=== PATIENT | female | born 2000 | race Hispanic/Latino ===

== ENCOUNTER 2021-01-14 12:54 | Emergency (ER) | payer SELFPAY ==
[~2021-01-14] VITALS: Ht 162.6 cm; Wt 55.4 kg
[2021-01-14 14:06] LABS: HEMATOCRIT 35.8 % (37.0-47.0); HEMOGLOBIN 11.9 g/dl (12.0-16.0); IMMATURE GRANULOCYTES 1.5 % (0.0-5.0); MEAN CELL VOLUME 89.7 fL CALC (80.0-100.0); MEAN CORPUSCULAR HGB 29.8 pG CALC (26.0-32.0); MEAN CORPUSCULAR HGB CONC 33.2 g/dL CAL (32.0-36.0); NEUT# 7.38 thou/uL (2.00-7.15); RED BLOOD COUNT 3.99 mill/uL (4.20-5.60); RED CELL DISTRI WIDTH 12.6 % (11.5-15.5)
[2021-01-14 14:09] LABS: ALBUMIN 3.6 g/dL (3.2-5.0); ALKALINE PHOSPHATASE 42 u/l (38-126); ANION GAP 9 (6-22 (CALC)); BUN 6 mg/dL (7-17); BUN/CREATININE RATIO 12 (12-20 (CALC)); CARBON DIOXIDE 24 mmol/l (22-30); CHLORIDE 101 mmol/l (95-108); CREATININE 0.5 mg/dL (0.5-1.0); GFR > 60 ML/MIN (>=60 (CALC)); GFR FOR AFR.AMER. > 60 ML/MIN (>=60 (CALC)); POTASSIUM 3.4 mmol/l (3.5-5.1); SGOT/AST 19 u/l (14-36); SODIUM 131 mmol/l (137-146); TOTAL PROTEIN 6.8 g/dL (6.3-8.2)
[2021-01-14] MEDS ORDERED: PRENATA3 PO (14:14)
[2021-01-14] MEDS ORDERED: DICLEGIS1 TAB PO (14:16)
[2021-01-14 14:33] LABS: URINE BILIRUBIN - DIPSTICK NEGATIVE (NEGATIVE); URINE BLOOD DIPSTICK NEGATIVE (NEGATIVE); URINE COLOR YELLOW; URINE GLUCOSE - DIPSTICK NEGATIVE (NEGATIVE); URINE KETONE NEGATIVE (NEGATIVE); URINE LEUK ESTERASE NEGATIVE (NEGATIVE); URINE PROTEIN - DIPSTICK TRACE mg/dL (NEG-TRACE); URINE UROBILINOGEN - DIPSTICK 0.2 E.U./dL (0.2)
[2021-01-14 14:34] LABS: URINE NITRITE - DIPSTICK POSITIVE (Negative)
[2021-01-14 14:40] LABS: URINE BACTERIA FEW hpf; URINE SQUAMOUS EPITHELIAL CELL MODERATE EPI/hpf (0-FEW)
[2021-01-14] MEDS ORDERED: MACROBID100 M1 PO (16:31)
[2021-01-14 16:49] VITALS: BP 97/62
== END 2021-01-14 16:57 | disposition home or self-care (01) | DRG 832 ==
LOC: ED 12:54
PROVIDERS: Family Medicine
DX: O23.42 Unspecified infection of urinary tract in pregnancy, second trimester (principal); E87.1 Hypo-osmolality and hyponatremia; O99.282 Endocrine, nutritional and metabolic diseases complicating pregnancy, second trimester; Z3A.15 15 weeks gestation of pregnancy

== ENCOUNTER 2023-10-18 22:13 | Observation (INO) | payer SELFPAY ==
[~2023-10-18] VITALS: Ht 162.6 cm; Wt 56.6 kg
[~2023-10-18 22:13] MED LIST: DICLEGIS1 TAB PO; MACROBID100 M1 PO; PRENATA3 PO
[2023-10-18 22:32] VITALS: BP 95/64
[2023-10-18] MEDS ORDERED: ONDANSETRON HCl 4 MG/2 ML SDV IV STA (22:36)
[2023-10-18] MEDS ORDERED: SODIUM CHLORIDE 0.9% 1,000 ML IV STA (22:36)
[2023-10-18 23:13] LABS: BASO% 0.2 % (0-3); IMMATURE GRANULOCYTES 0.1 % (0.0-5.0); LYMPH% 13.4 % (15-41); MEAN CORPUSCULAR HGB 29.2 pG CALC (26.0-32.0); MEAN CORPUSCULAR HGB CONC 32.5 g/dL CAL (32.0-36.0); MONO% 4.3 % (2-13); NEUT# 10.95 thou/uL (2.00-7.15); RED BLOOD COUNT 4.31 mill/uL (4.20-5.60); RED CELL DISTRI WIDTH 11.9 % (11.5-15.5)
[2023-10-18 23:21] LABS: BUN 10 mg/dL (7-17); BUN/CREATININE RATIO 22 (12-20 (CALC)); CHLORIDE 107 mmol/l (95-108); CREATININE 0.5 mg/dL (0.5-1.0); GFR FOR AFR.AMER. > 60 ML/MIN (>=60 (CALC)); GFR OTHER RACES > 60 ML/MIN (>=60 (CALC)); HEMATOCRIT 38.8 % (37.0-47.0); HEMOGLOBIN 12.6 g/dl (12.0-16.0); LIPASE 88 u/l (23-300); POTASSIUM 3.2 mmol/l (3.5-5.1); SGOT/AST 31 u/l (14-36); SODIUM 136 mmol/l (137-146); TOTAL PROTEIN 7.2 g/dL (6.3-8.2)
[2023-10-18 23:23] LABS: ALBUMIN 4.5 g/dL (3.2-5.0); ALKALINE PHOSPHATASE 74 u/l (38-126); ANION GAP 14 (6-22 (CALC)); BILIRUBIN, TOTAL 0.6 mg/dL (0.02-1.3); CARBON DIOXIDE 18 mmol/l (22-30)
[2023-10-18 23:30] VITALS: BP 101/65
[2023-10-18] MEDS ORDERED: MORPHINE SULFATE 4 MG/ML VIAL IV ONE (23:30)
[2023-10-19] VITALS (15 sets, daily range): BP systolic 97–119; BP diastolic 47–79
[2023-10-19 00:58] LABS: URINE BILIRUBIN - DIPSTICK Negative (NEGATIVE); URINE BLOOD DIPSTICK Moderate (NEGATIVE); URINE GLUCOSE - DIPSTICK Negative (NEGATIVE); URINE KETONE 40 mg/dL (NEGATIVE); URINE LEUK ESTERASE Negative (NEGATIVE); URINE PH 5.5 (4.5-8.0); URINE PROTEIN - DIPSTICK Negative (NEG-TRACE); URINE UROBILINOGEN - DIPSTICK 0.2 E.U./dL (0.2)
[2023-10-19 01:02] LABS: URINE COLOR Yellow; URINE NITRITE - DIPSTICK Positive (Negative)
[2023-10-19 01:08] LABS: URINE BACTERIA MODERATE hpf; URINE MUCUS FEW hpf (NONE-FEW); URINE SQUAMOUS EPITHELIAL CELL FEW EPI/hpf (0-FEW)
[2023-10-19] MEDS ORDERED: KETOROLAC TROMETHAMINE 30 MG/ML SDV IV ONE (01:10)
[2023-10-19] MEDS ORDERED: PIPERACILLIN Sodium-Tazobactam 3.375 GM in SODIUM CHLORIDE 0.9% 100 ML IV ONE (02:20)
[2023-10-19] MEDS ORDERED: SODIUM CHLORIDE 0.9% 1,000 ML IV PRN (02:55)
[2023-10-19] MEDS ORDERED: MORPHINE SULFATE 4 MG/ML VIAL IV PRN (02:55)
[2023-10-19] MEDS ORDERED: PIPERACILLIN Sodium-Tazobactam 3.375 GM in SODIUM CHLORIDE 0.9% 100 ML IV SCH ×2 (06:00→08:00)
[2023-10-19] MEDS ORDERED: ONDANSETRON HCl 4 MG/2 ML SDV IV SCH (11:30)
[2023-10-19] MEDS ORDERED: ONDANSETRON HCl 4 MG/2 ML SDV ONE (12:04)
[2023-10-19] MEDS ORDERED: oxyCODONE 5MG/ ACETAMINOPHEN 325MG TAB PO PRN (12:55)
[2023-10-19] MEDS ORDERED: HYDROmorphone HCL 2 MG/AMP IV PRN (12:55)
[2023-10-19] MEDS ORDERED: ONDANSETRON HCl 4 MG/2 ML SDV IV PRN (12:58)
[2023-10-19] MEDS ORDERED: LACTATED RINGER'S 1,000 ML IV ONE (13:18)
[2023-10-19] MEDS ORDERED: STERILE WATER FOR IRRIGATION 1,000 ML BTL IR ONE (13:18)
[2023-10-19] MEDS ORDERED: LIDOcaine HCl 1% (Local Anesth.) 20 ML VIAL ONE (13:18)
[2023-10-19] MEDS ORDERED: SODIUM CHLORIDE 1,000 ML BTL IR ONE (13:18)
[2023-10-19] MEDS ORDERED: KETOROLAC TROMETHAMINE 30 MG/ML SDV ONE (13:29)
[2023-10-19] MEDS ORDERED: ACETAMINOPHEN 100 ML IV ONE (13:29)
[2023-10-19] MEDS ORDERED: GLYCOPYRROLATE 0.2 MG/ML IV ONE (15:26)
[2023-10-19] MEDS ORDERED: LIDOCAINE HCL 2% 2ML SDV IV ONE (15:26)
[2023-10-19] MEDS ORDERED: PROPOFOL 200 MG/20 ML VIAL IV ONE (15:26)
[2023-10-19] MEDS ORDERED: SUGAMMADEX SODIUM 200 MG/2 ML SDV IV ONE (15:26)
[2023-10-19] MEDS ORDERED: LACTATED RINGER'S 1,000 ML BAG IV ONE (15:26)
[2023-10-19] MEDS ORDERED: SUCCINYLCHOLINE CHLORIDE 20 MG/ML 10ML VIAL IV ONE (15:26)
[2023-10-19] MEDS ORDERED: PERCOCET 5/325M1 TAB PO (15:38)
[2023-10-19] MEDS ORDERED: KETOROLAC TROMETHAMINE 15 MG/ML SDV IV SCH (18:00)
[2023-10-20 04:12] VITALS: BP 102/55
[2023-10-20 07:04] VITALS: BP 101/61
[2023-10-20 09:03] VITALS: BP 101/61
== END 2023-10-20 12:20 | disposition home or self-care (01) | DRG 399 ==
LOC: ED 22:13 → ED-I 10-19 01:40 → ED 10-19 02:23 → MS2 10-19 02:24
PROVIDERS: Family Medicine; ADMIT Surgery; ATTEND Surgery
PROC: 0DTJ4ZZ Resection of Appendix, Percutaneous Endoscopic Approach (ICD-10-PCS; principal; 2023-10-19)
DX: K35.30 Acute appendicitis with localized peritonitis, without perforation or gangrene (principal); R82.71 Bacteriuria; Z20.822 Contact with and (suspected) exposure to COVID-19
CPT/HCPCS: G0378; J0131; Q9967